=== PATIENT | male | born 2000 | race Caucasian/White ===

== ENCOUNTER → 2021-04-21 06:38 | Outpatient (CLI) | payer OTHER, SELFPAY ==
--- NOTE | 2021-04-21 | DI.MRI.S_ITS ---
PROCEDURE: MR HAND RT WO/W CON INDICATIONS: Localized swelling, mass and lump right hand TECHNIQUE: Noncontrast coronal T1 spin echo and STIR, sagittal T1 spin echo with fat saturation and STIR, axial T1 spin echo and T2 fast spin echo with fat saturation. After the administration of contrast, axial/sagittal/coronal T1 spin echo with fat saturation through the right hand. COMPARISON: None. FINDINGS: Image quality: Excellent. Bones: The visualized bone marrow demonstrates normal signal on all sequences. The overlying cortex appears intact. No abnormal intraosseous enhancement. Soft tissues: A 0.9 x 2.2 x 2.3 cm soft tissue mass is seen, which exhibits contrast enhancement and appears to arise from the 5th digit flexor digitorum tendon. The scanned muscles demonstrate normal overall bulk and internal signal. Subcutaneous tissues appear normal as well. IMPRESSION: 1. Contrast enhancing mass, which appears to arise from the 5th digit flexor digitorum tendon. Differential considerations include tenosynovial giant cell tumor or fibroma of the tendon sheath. Dictated by: Kevin Shah M.D. on 04/21/2021 at 8:58 Approved by: Kevin Shah M.D. on 04/21/2021 at 9:11
== END ==
PROVIDERS: Referring Provider Orthopaedic Surgery; Visit Provider Orthopaedic Surgery
DX: R22.31 Localized swelling, mass and lump, right upper limb (principal)
CPT/HCPCS: 73220